=== PATIENT | male | born 1970 | race Caucasian/White ===

== ENCOUNTER 2017-01-15 12:04 | Emergency (ER) | payer OTHER ==
[~2017-01-15] VITALS: Ht 170.2 cm; Wt 64.4 kg
[2017-01-15 12:11] VITALS: BP 152/97
== END 2017-01-15 14:37 | disposition home or self-care (01) ==
LOC: ED 12:04
DX: A53.9 Syphilis, unspecified (principal)
CPT/HCPCS: J0561